=== PATIENT | male | born 1975 | race Caucasian/White ===

== ENCOUNTER 2024-04-06 20:48 | Emergency (ER) | payer BC ==
[2024-04-06 21:48] VITALS: BP 160/91; PULSE 74; RESP 17; TEMP 97.7; BMI 32.3
== END 2024-04-06 23:04 | disposition home or self-care (01) ==
LOC: FER 20:48
DX: R07.9 Chest pain, unspecified (principal)
CPT/HCPCS: 36415; 82550; 82553; 84484; 93005; 99284-25